=== PATIENT | male | born 1955 | race Caucasian/White ===

== ENCOUNTER → 2016-09-23 | Outpatient (CLI) | payer SELFPAY | LOC: HEART 5 08:29 | DX: R06.02 Shortness of breath (principal); R05 Cough; Z87.891 Personal history of nicotine dependence | CPT/HCPCS: 94010 ==

== ENCOUNTER → 2020-07-18 | Outpatient (CLI) | payer OTHER | LOC: HEART 5 08:15 | DX: R06.02 Shortness of breath (principal) | CPT/HCPCS: 78452; A9502 ==

== ENCOUNTER → 2021-04-16 | Outpatient (CLI) | payer OTHER | LOC: EXRD 08:34 | DX: R10.84 Generalized abdominal pain (principal); K76.0 Fatty (change of) liver, not elsewhere classified | CPT/HCPCS: 76705 ==

== ENCOUNTER 2021-11-13 02:30 | Observation (INO) | payer MEDICARE, OTHER ==
[~2021-11-13] VITALS: Ht 180.3 cm; Wt 121.4 kg
[2021-11-13 03:03] LABS: HEMOGLOBIN 13.1 gm/dl (14.0-17.5); RED BLOOD COUNT 5.23 M/UL (4.20-5.50); WHITE BLOOD COUNT 7.1 K/UL (4.5-11.0)
[2021-11-13 03:21] LABS: BUN/CREATININE RATIO 19 (0-10)
[2021-11-13] MEDS ORDERED: OMNICEF 300 MG300 MG PO (09:41)
[2021-11-13] MEDS ORDERED: GLIPIZIDE XL2.5 MG PO (09:42)
[2021-11-13] MEDS ORDERED: LOPRESSOR 25 MG25 MG PO (09:43)
[2021-11-13] MEDS ORDERED: METFORMIN HCL1000 MG PO (10:04)
[2021-11-13] MEDS ORDERED: ZOCOR 40 MG TAB40 MG PO (10:04)
[2021-11-13] MEDS ORDERED: HYDROCHLOROTHIA25 MG PO (10:05)
[2021-11-13] MEDS ORDERED: LOW DOSE ASPIRI81 MG PO (10:07)
[2021-11-13] MEDS ORDERED: PRILOSEC OTC20 MG PO (10:07)
[2021-11-13] MEDS ORDERED: MULTI-VITAMIN1 EACH PO (10:08)
[2021-11-14 02:57] LABS: HEMOGLOBIN 12.2 gm/dl (14.0-17.5); RED BLOOD COUNT 4.96 M/UL (4.20-5.50); WHITE BLOOD COUNT 6.1 K/UL (4.5-11.0)
[2021-11-14 04:14] LABS: BUN/CREATININE RATIO 17 (0-10)
[2021-11-14] MEDS ORDERED: BRILINTA 90 MG90 MG PO (09:51)
== END 2021-11-14 11:23 | disposition home or self-care (01) ==
LOC: ER1 02:30 → CDU 04:19 → PROG CARE 15:03
PROVIDERS: Internal Medicine; Physician Assistant; ADMIT Internal Medicine
DX: I97.190 Other postprocedural cardiac functional disturbances following cardiac surgery (principal); T82.867A Thrombosis due to cardiac prosthetic devices, implants and grafts, initial encounter; I21.A9 Other myocardial infarction type; I25.119 Atherosclerotic heart disease of native coronary artery with unspecified angina pectoris; E11.9 Type 2 diabetes mellitus without complications; I10 Essential (primary) hypertension; E78.5 Hyperlipidemia, unspecified; N40.0 Benign prostatic hyperplasia without lower urinary tract symptoms; R05.3 Chronic cough; K21.9 Gastro-esophageal reflux disease without esophagitis; Z95.5 Presence of coronary angioplasty implant and graft; Z79.82 Long term (current) use of aspirin; Z79.84 Long term (current) use of oral hypoglycemic drugs; Z79.899 Other long term (current) drug therapy; Z87.891 Personal history of nicotine dependence; Z82.49 Family history of ischemic heart disease and other diseases of the circulatory system
CPT/HCPCS: ECHO; 36415; 71045; 80053; 80061; 82550; 82553; 82962; 83036; 83735; 83880; 84484; 85025; 85347; 85610; 85730; 92978; 93005; 93306; 96372; 99152; 99153; 99285; C1725; C1753; C1769; C1874; C1887; C1894; C9600; G0378; J1644; J1650; J2250; J3010; Q9967

== ENCOUNTER → 2021-12-29 | Outpatient (CLI) | payer MEDICARE, OTHER ==
[~2021-12-29] MED LIST: BRILINTA 90 MG90 MG PO; GLIPIZIDE XL2.5 MG PO; HYDROCHLOROTHIA25 MG PO; LOPRESSOR 25 MG25 MG PO; LOW DOSE ASPIRI81 MG PO; METFORMIN HCL1000 MG PO; MULTI-VITAMIN1 EACH PO; OMNICEF 300 MG300 MG PO; PRILOSEC OTC20 MG PO; ZOCOR 40 MG TAB40 MG PO
== END ==
LOC: KOH-I 14:39
DX: R05.9 Cough, unspecified (principal)
CPT/HCPCS: 71046